=== PATIENT | female | born 1985 | race African-American/Black ===

== ENCOUNTER 2018-08-14 11:59 | Observation (INO) | payer MEDICAID ==
[2018-08-14] MEDS ORDERED: PNV1TABL50 MT (12:43)
== END 2018-08-14 13:00 | disposition home or self-care (01) ==
LOC: 8 EST LDRP 11:59
PROVIDERS: ADMIT Obstetrics & Gynecology; ATTEND Obstetrics & Gynecology
DX: O26.892 Other specified pregnancy related conditions, second trimester (principal); R10.2 Pelvic and perineal pain; N89.8 Other specified noninflammatory disorders of vagina; Z3A.21 21 weeks gestation of pregnancy
CPT/HCPCS: 99281; G0378

== ENCOUNTER 2018-08-14 12:59 | Emergency (ER) | payer MEDICAID ==
[~2018-08-14] VITALS: Ht 152.4 cm; Wt 81.0 kg
[~2018-08-14 12:59] MED LIST: PNV1TABL50 MT
[2018-08-14 15:41] LABS: CLARITY URINE CLEAR (CLEAR); COLOR URINE YELLOW (YELLOW); KETONES URINE TRACE (NEGATIVE); LEUKOCYTE ESTERASE URINE 1+ (NEGATIVE); NITRITE URINE NEGATIVE (NEGATIVE); OCCULT BLOOD URINE NEGATIVE (NEGATIVE); PH URINE 7.5 (4.5-8.0); PROTEIN URINE NEGATIVE (NEGATIVE); SPECIFIC GRAVITY URINE 1.032 (1.005-1.030)
[2018-08-14 16:40] VITALS: BP 108/68
== END 2018-08-14 16:44 | disposition home or self-care (01) ==
LOC: ER 13:19
DX: O23.42 Unspecified infection of urinary tract in pregnancy, second trimester (principal); O26.892 Other specified pregnancy related conditions, second trimester; N89.8 Other specified noninflammatory disorders of vagina; R39.15 Urgency of urination; Z3A.21 21 weeks gestation of pregnancy; Z98.890 Other specified postprocedural states
CPT/HCPCS: 87210; 99283

== ENCOUNTER 2019-12-25 07:19 | Emergency (ER) | payer MEDICAID ==
[~2019-12-25] VITALS: Ht 149.9 cm; Wt 69.0 kg
[2019-12-25 09:00] VITALS: BP 110/68
== END 2019-12-25 09:02 | disposition home or self-care (01) ==
LOC: ER 07:19
DX: B37.3 Candidiasis of vulva and vagina (principal); Z98.890 Other specified postprocedural states
CPT/HCPCS: 99283

== ENCOUNTER 2020-06-03 18:59 | Emergency (ER) | payer MEDICAID ==
[~2020-06-03] VITALS: Ht 152.4 cm; Wt 69.0 kg
[2020-06-03 19:07] VITALS: BP 111/87
[2020-06-03 21:14] LABS: EOSINOPHILS % 1.5 % (0.0-5.0); HEMATOCRIT. 36.3 % (36.0-48.0); HEMOGLOBIN. 12.3 g/dL (12.0-16.0); LYMPHOCYTES % 34.6 % (20.0-50.0); MEAN CORPUSCULAR HEMOGLOBIN 30.3 pg (28.0-32.0); MEAN CORPUSCULAR VOLUME 89.6 fL (81.0-99.0); MEAN PLATELET VOLUME 10.6 fl (7.4-10.4); MONOCYTES % 7.2 % (2.0-8.0); NEUTROPHILS % 55.7 % (40.0-76.0); PLATELET 149 x1000/uL (130-400); RED BLOOD CELL COUNT 4.05 mill/uL (4.2-5.4); RED CELL DISTRIBUTION WIDTH 14.1 % (11.6-14.6)
[2020-06-03 21:21] LABS: CHLORIDE 106 mEq/L (98-107)
[2020-06-03 23:04] LABS: CLARITY URINE CLOUDY (CLEAR); COLOR URINE YELLOW (YELLOW); KETONES URINE 1+ (NEGATIVE); LEUKOCYTE ESTERASE URINE 1+ (NEGATIVE); NITRITE URINE NEGATIVE (NEGATIVE); OCCULT BLOOD URINE NEGATIVE (NEGATIVE); PH URINE 6.5 (4.5-8.0); PROTEIN URINE NEGATIVE (NEGATIVE); SPECIFIC GRAVITY URINE 1.026 (1.005-1.030)
== END 2020-06-04 00:19 | disposition home or self-care (01) ==
LOC: ER 18:59
DX: N39.0 Urinary tract infection, site not specified (principal); Z88.6 Allergy status to analgesic agent
CPT/HCPCS: 36415; 80053; 81003; 81025; 85025; 93005; 99284

== ENCOUNTER 2020-08-15 04:41 | Emergency (ER) | payer MEDICAID ==
[~2020-08-15] VITALS: Ht 149.9 cm; Wt 79.0 kg
[2020-08-15 06:36] LABS: CHLORIDE 110 mEq/L (98-107)
[2020-08-15 06:39] LABS: BASOPHILS % 0.6 % (0.0-2.0); EOSINOPHILS % 0.9 % (0.0-5.0); HEMATOCRIT. 41.6 % (36.0-48.0); HEMOGLOBIN. 13.6 g/dL (12.0-16.0); LYMPHOCYTES % 23.4 % (20.0-50.0); MEAN CORPUSCULAR HEMOGLOBIN 29.4 pg (28.0-32.0); MEAN CORPUSCULAR VOLUME 89.9 fL (81.0-99.0); MEAN PLATELET VOLUME 10.4 fl (7.4-10.4); NEUTROPHILS % 69.1 % (40.0-76.0); PLATELET 183 x1000/uL (130-400); RED BLOOD CELL COUNT 4.63 mill/uL (4.2-5.4); RED CELL DISTRIBUTION WIDTH 14.1 % (11.6-14.6)
[2020-08-15 06:44] LABS: HCG SCREEN NEGATIVE
[2020-08-15] MEDS ORDERED: OMEP20CA14 MT (09:06)
[2020-08-15 09:20] VITALS: BP 121/59
[2020-08-15] MEDS ORDERED: CODE473S5 MT (11:01)
[2020-08-15] MEDS ORDERED: NITR-87 MT (11:01)
== END 2020-08-15 09:24 | disposition home or self-care (01) ==
LOC: ER 04:41
DX: N39.0 Urinary tract infection, site not specified (principal); R05 Cough; R10.10 Upper abdominal pain, unspecified; Z98.890 Other specified postprocedural states; Z88.6 Allergy status to analgesic agent
CPT/HCPCS: 36415; 71045; 80053; 81025; 84703; 85025; 99284

== ENCOUNTER 2020-08-31 11:06 | Emergency (ER) | payer MEDICAID ==
[~2020-08-31] VITALS: Ht 152.4 cm; Wt 71.0 kg
[~2020-08-31 11:06] MED LIST changes: +CODE473S5 MT; +NITR-87 MT; +OMEP20CA14 MT
[2020-08-31 11:14] VITALS: BP 121/40
[2020-08-31 12:51] LABS: CLARITY URINE CLEAR (CLEAR); COLOR URINE YELLOW (YELLOW); KETONES URINE TRACE (NEGATIVE); LEUKOCYTE ESTERASE URINE TRACE (NEGATIVE); NITRITE URINE NEGATIVE (NEGATIVE); OCCULT BLOOD URINE NEGATIVE (NEGATIVE); PH URINE 5.5 (4.5-8.0); PROTEIN URINE TRACE (NEGATIVE); SPECIFIC GRAVITY URINE 1.034 (1.005-1.030)
[2020-08-31] MEDS ORDERED: NITR100C PO (13:22)
[2020-08-31] MEDS ORDERED: D-ME473S50 PO (13:22)
[2020-08-31] MEDS ORDERED: METR70GE17 VG (13:22)
[2020-08-31] MEDS ORDERED: FLUC150T5 PO (13:22)
== END 2020-08-31 13:49 | disposition home or self-care (01) ==
LOC: ER 11:45
DX: J06.9 Acute upper respiratory infection, unspecified (principal); N39.0 Urinary tract infection, site not specified; N76.0 Acute vaginitis; Z98.890 Other specified postprocedural states; Z88.6 Allergy status to analgesic agent
CPT/HCPCS: 81003; 81025; 99283

== ENCOUNTER 2020-09-29 10:01 | Emergency (ER) | payer MEDICAID ==
[~2020-09-29] VITALS: Ht 149.9 cm; Wt 69.0 kg
[~2020-09-29 10:01] MED LIST changes: +D-ME473S50 PO; +FLUC150T5 PO; +METR70GE17 VG; +NITR100C PO
[2020-09-29] MEDS ORDERED: ACET-2708 PO (12:10)
[2020-09-29] MEDS ORDERED: D-ME473S50 PO (12:10)
[2020-09-29] MEDS ORDERED: TRAM50TA3 MT (12:10)
[2020-09-29 12:41] VITALS: BP 106/53
== END 2020-09-29 12:42 | disposition home or self-care (01) ==
LOC: ER 10:24
DX: J06.9 Acute upper respiratory infection, unspecified (principal); M54.9 Dorsalgia, unspecified; N64.4 Mastodynia; Z98.890 Other specified postprocedural states; Z79.899 Other long term (current) drug therapy; Z88.6 Allergy status to analgesic agent
CPT/HCPCS: 81025; 99283

== ENCOUNTER 2020-10-25 13:05 | Emergency (ER) | payer MEDICAID ==
[~2020-10-25] VITALS: Ht 149.9 cm; Wt 69.0 kg
[~2020-10-25 13:05] MED LIST changes: +ACET-2708 PO; +TRAM50TA3 MT
[2020-10-25] MEDS ORDERED: SODIUM CHLORIDE 0.9% 1,000 ML IV ONE (14:30)
[2020-10-25] MEDS ORDERED: ACETAMINOPHEN 325MG TABLET PO ONE (14:30)
[2020-10-25] MEDS ORDERED: LIDOCAINE 5% PATCH TOP SCH (14:30)
[2020-10-25 14:38] LABS: BASOPHILS % 0.6 % (0.0-2.0); HEMATOCRIT. 37.4 % (36.0-48.0); HEMOGLOBIN. 12.8 g/dL (12.0-16.0); LYMPHOCYTES % 31.3 % (20.0-50.0); MEAN CORPUSCULAR HEMOGLOBIN 30.6 pg (28.0-32.0); MEAN CORPUSCULAR VOLUME 89.4 fL (81.0-99.0); MEAN PLATELET VOLUME 10.1 fl (7.4-10.4); MONOCYTES % 7.9 % (2.0-8.0); NEUTROPHILS % 58.2 % (40.0-76.0); PLATELET 153 x1000/uL (130-400); RED BLOOD CELL COUNT 4.18 mill/uL (4.2-5.4); RED CELL DISTRIBUTION WIDTH 14.4 % (11.6-14.6)
[2020-10-25 14:40] LABS: CLARITY URINE CLEAR (CLEAR); COLOR URINE YELLOW (YELLOW); KETONES URINE TRACE (NEGATIVE); LEUKOCYTE ESTERASE URINE NEGATIVE (NEGATIVE); NITRITE URINE NEGATIVE (NEGATIVE); OCCULT BLOOD URINE NEGATIVE (NEGATIVE); PH URINE 5.5 (4.5-8.0); PROTEIN URINE NEGATIVE (NEGATIVE); SPECIFIC GRAVITY URINE 1.034 (1.005-1.030); UROBILINOGEN URINE 0.2 E.U./dL (0.2-1.0)
[2020-10-25 14:49] LABS: CHLORIDE 108 mEq/L (98-107)
[2020-10-25 14:51] LABS: *AMPHETAMINES SCREEN URINE NEGATIVE (NEGATIVE); *BARBITURATES SCREEN URINE NEGATIVE (NEGATIVE); *BENZODIAZEPINES SCREEN URINE NEGATIVE (NEGATIVE); *COCAINE SCREEN URINE NEGATIVE (NEGATIVE); METHADONE URINE SCREEN NEGATIVE (NEGATIVE); OPIATES URINE SCREEN NEGATIVE (NEGATIVE)
[2020-10-25 14:52] LABS: PHENCYCLIDINE URINE SCREEN NEGATIVE (NEGATIVE)
[2020-10-25] MEDS ORDERED: DEXAMETHASONE 10 MG/ML VIAL IV ONE (15:00)
[2020-10-25 15:02] LABS: CANNABINOID URINE SCREEN PRESUMTIVE POSITIVE (NEGATIVE)
[2020-10-25] MEDS ORDERED: BACL-141 MT (15:40)
[2020-10-25 16:00] VITALS: BP 112/72
== END 2020-10-25 16:28 | disposition home or self-care (01) ==
LOC: ER 13:05
DX: R10.9 Unspecified abdominal pain (principal); Z88.5 Allergy status to narcotic agent; Z79.899 Other long term (current) drug therapy; Z98.890 Other specified postprocedural states
CPT/HCPCS: 36415; 76770; 80053; 80305; 81003; 81025; 83690; 85025; 93005; 96374; 99285; J1100; J7030; Z7610; A4315

== ENCOUNTER 2021-08-16 07:18 | Emergency (ER) | payer MEDICAID, OTHER ==
[~2021-08-16] VITALS: Ht 149.9 cm; Wt 65.0 kg
[~2021-08-16 07:18] MED LIST changes: +BACL-141 MT; +OMEP40CA20 MT
[2021-08-16 07:29] VITALS: BP 108/68
[2021-08-16] MEDS ORDERED: HYDROCODONE/ACETAMINOPHEN 5/325MG TABLET PO ONE (08:00)
[2021-08-16] MEDS ORDERED: BACITRACIN ZINC OINT UDPKT TOP ONE (08:00)
== END 2021-08-16 08:21 | disposition home or self-care (01) ==
LOC: ER 08:19
DX: T25.131A Burn of first degree of right toe(s) (nail), initial encounter (principal); T25.132A Burn of first degree of left toe(s) (nail), initial encounter; F12.10 Cannabis abuse, uncomplicated; Z98.890 Other specified postprocedural states; Z88.6 Allergy status to analgesic agent; X11.0XXA Contact with hot water in bath or tub, initial encounter; Y93.E1 Activity, personal bathing and showering; Y92.012 Bathroom of single-family (private) house as the place of occurrence of the external cause
CPT/HCPCS: 99283

== ENCOUNTER 2022-01-13 09:51 | Emergency (ER) | payer MEDICAID, OTHER ==
[~2022-01-13] VITALS: Ht 149.9 cm; Wt 68.0 kg
[~2022-01-13 09:51] MED LIST changes: +FLUC150T46 PO; -FLUC150T5 PO
[2022-01-13 09:54] VITALS: BP 110/50
[2022-01-13 10:34] LABS: BASOPHILS % 0.6 % (0.0-2.0); EOSINOPHILS % 1.5 % (0.0-5.0); HEMATOCRIT. 42.2 % (36.0-48.0); HEMOGLOBIN. 14.1 g/dL (12.0-16.0); LYMPHOCYTES % 32.8 % (20.0-50.0); MEAN CORPUSCULAR HEMOGLOBIN 30.6 pg (28.0-32.0); MEAN CORPUSCULAR VOLUME 91.8 fL (81.0-99.0); MEAN PLATELET VOLUME 10.6 fl (7.4-10.4); NEUTROPHILS % 58.1 % (40.0-76.0); PLATELET 163 x1000/uL (130-400); RED BLOOD CELL COUNT 4.59 mill/uL (4.2-5.4); RED CELL DISTRIBUTION WIDTH 13.4 % (11.6-14.6)
[2022-01-13 10:42] LABS: CHLORIDE 107 mEq/L (98-107)
[2022-01-13 10:44] LABS: CLARITY URINE CLEAR (CLEAR); COLOR URINE YELLOW (YELLOW); KETONES URINE TRACE (NEGATIVE); LEUKOCYTE ESTERASE URINE TRACE (NEGATIVE); NITRITE URINE NEGATIVE (NEGATIVE); OCCULT BLOOD URINE 3+ (NEGATIVE); PROTEIN URINE NEGATIVE (NEGATIVE)
[2022-01-13 10:51] LABS: B-HCG QUANTITATIVE < 1 mIU/mL (<3)
== END 2022-01-13 13:25 | disposition home or self-care (01) ==
LOC: ER 09:51
DX: N93.8 Other specified abnormal uterine and vaginal bleeding (principal); Z88.6 Allergy status to analgesic agent; Z79.899 Other long term (current) drug therapy; Z98.890 Other specified postprocedural states
CPT/HCPCS: 36415; 76830; 76856; 80053; 81003; 81025; 84702; 85025; 86850; 86870; 86900; 99284